=== PATIENT | male | born 1995 | race Caucasian/White ===

== ENCOUNTER 2017-03-18 15:55 | Emergency (ER) | payer BC ==
[2017-03-18 16:02] VITALS: RESP 16; TEMP 98.6
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
[2017-03-18 17:41] VITALS: BP 130/87; PULSE 76; O2SAT 96
== END 2017-03-18 17:40 | disposition home or self-care (01) ==
DX: S09.90XA Unspecified injury of head, initial encounter (principal); W01.198A Fall on same level from slipping, tripping and stumbling with subsequent striking against other object, initial encounter